=== PATIENT | male | born 1955 | race Caucasian/White ===

== ENCOUNTER → 2016-12-28 | Outpatient (CLI) | payer OTHER ==
[~2016-12-28] MED LIST: CYCLOBENZAPRINE10 MG PO; IBUPROFEN800 MG PO; LISINOPRIL10 MG PO; OMEPRAZOLE; SIMVASTATIN40 MG PO; ULTRAM50 MG PO
== END | disposition home or self-care (01) ==
LOC: CDC 08:13
DX: I44.0 Atrioventricular block, first degree (principal); M25.562 Pain in left knee
CPT/HCPCS: 93000

== ENCOUNTER 2017-03-07 13:11 | Emergency (ER) | payer OTHER ==
[~2017-03-07] VITALS: Ht 182.9 cm; Wt 89.5 kg
[2017-03-07] MEDS ORDERED: FLEXERIL10 MG PO (14:42)
[2017-03-07] MEDS ORDERED: LIDODERM 5% P1 PATCH TD (14:42)
[2017-03-07 15:11] VITALS: BP 137/71
== END 2017-03-07 15:12 | disposition home or self-care (01) ==
LOC: EME 13:11
DX: M54.5 Low back pain (principal)
CPT/HCPCS: 99281; 99284; J1885; J2270